=== PATIENT | female | born 2000 | race Caucasian/White ===

== ENCOUNTER 2021-03-12 12:06 | Day surgery (SDC) | payer OTHER ==
[2021-03-12 13:01] VITALS: BMI 31.1
[2021-03-12 13:50] LABS: Fetal Membranes Rupture No Membranes Rupture (No Rupture)
[2021-03-12] MEDS ORDERED: hydrALAZINE 20 MG/ML VIAL SLOW IVP PRN (14:08)
== END 2021-03-12 14:50 | disposition home health service (06) ==
LOC: CSHLD/OP 12:06
PROVIDERS: ATTEND Obstetrics & Gynecology
DX: O99.891 Other specified diseases and conditions complicating pregnancy (principal); O47.1 False labor at or after 37 completed weeks of gestation; N89.8 Other specified noninflammatory disorders of vagina; Z3A.38 38 weeks gestation of pregnancy; Z79.899 Other long term (current) drug therapy; Z91.040 Latex allergy status
CPT/HCPCS: 84112; 87480; 87510; 87660; 99284

== ENCOUNTER 2021-03-13 22:56 | Inpatient (IN) | payer OTHER ==
[~2021-03-13 22:56] MED LIST: Bupivacaine 0.25% HCL 30 ML VIAL ONE
[2021-03-13 23:28] VITALS: BMI 30.9
[2021-03-13] MEDS ORDERED: Lactated Ringer's 1,000 ML IV SCH (23:45)
[2021-03-13] MEDS ORDERED: Acetaminophen 500 MG TAB PO PRN (23:55)
[2021-03-13] MEDS ORDERED: Promethazine HCl 25 MG/ML VIAL IM PRN (23:55)
[2021-03-13] MEDS ORDERED: Misoprostol 200 MCG TAB PR PRN (23:55)
[2021-03-13] MEDS ORDERED: Ondansetron PF 4 MG/2 ML Vial IVP PRN (23:55)
[2021-03-13] MEDS ORDERED: HYDROcodone/Acetaminophen 5/325 mg Tablet PO PRN ×2 (23:55)
[2021-03-13] MEDS ORDERED: Diphenoxylate HCl/Atropine Tablet PO PRN ×2 (23:55)
[2021-03-13] MEDS ORDERED: hydrALAZINE 20 MG/ML VIAL SLOW IVP PRN (23:55)
[2021-03-13] MEDS ORDERED: Butorphanol Tartrate 1 MG/ML VIAL SLOW IVP PRN (23:55)
[2021-03-13] MEDS ORDERED: Carboprost 250 MCG/ML AMP IM PRN (23:55)
[2021-03-13] MEDS ORDERED: Docusate 100 MG CAP PO PRN (23:55)
[2021-03-13] MEDS ORDERED: Lidocaine 1% (PF) 30 ML VIAL SC PRN (23:55)
[2021-03-13] MEDS ORDERED: Ibuprofen 800 MG TAB PO PRN (23:55)
[2021-03-13] MEDS ORDERED: Methylergonovine 0.2 MG/ML VIAL IM PRN (23:55)
[2021-03-14 04:34] LABS: Hep B Surf Ag Non-Reactive S/CO (NonReactive); Syphilis Antibody Nonreactive (Nonreactive); Syphilis Antibody Index 0.03 S/CO (<1.00 Non-Reactive)
[2021-03-14 04:35] LABS: SARS-CoV-2 NAA Rapid Test Not Detected (NotDetected)
[2021-03-14] MEDS ORDERED: Fentanyl 2 mcg/Bup 0.1% Cadd 100 ML ONE (04:35)
[2021-03-14 04:37] LABS: Hemoglobin 9.4 g/dL (12.0-15.5); Mean Corpuscular HGB CONC 31.2 g/dL (32.0-36.0); Mean Corpuscular Hemoglobin 23.3 pg (27.0-33.0); Mean Corpuscular Volume 74.7 fl (81.6-98.3); Mean Platelet Volume 10.9 fl (7.4-10.4); Platelet Count 281 10x3/uL (150-450); RBC Distribution Width 17.7 % (11.5-14.5); Red Blood Cell (RBC) Count 4.03 10x6/uL (3.90-5.03); White Blood Cell (WBC) Count 12.4 10x3/uL (3.5-10.5)
[2021-03-14] MEDS ORDERED: Naloxone HCl 0.4 mg/ml Vial IVP PRN ×2 (06:54)
[2021-03-14] MEDS ORDERED: Ondansetron PF 4 MG/2 ML Vial IVP PRN ×2 (06:54→12:59)
[2021-03-14] MEDS ORDERED: Promethazine HCl 25 MG/ML VIAL IM PRN ×2 (06:54→12:59)
[2021-03-14] MEDS ORDERED: ePHEDrine Sulfate 50 MG/10 ML VIAL SLOW IVP PRN (06:54)
[2021-03-14] MEDS ORDERED: Lactated Ringer's 500 ML IV PRN (06:54)
[2021-03-14] MEDS ORDERED: diphenhydrAMINE 50 MG/ML VIAL IVP PRN (06:54)
[2021-03-14] MEDS ORDERED: Hydrocerin (Eucerin) Cream 120 gm Jar TOP PRN (06:54)
[2021-03-14] MEDS ORDERED: Acetaminophen 325 MG TAB PO PRN (06:54)
[2021-03-14] MEDS ORDERED: Fentanyl 2 mcg/Bupivacaine 0.1% Cassette 100 ML EPIDURAL SCH (07:00)
[2021-03-14] MEDS ORDERED: Communication Order-Pharmacy FS PRN (07:00)
[2021-03-14] MEDS: NS w/ Oxytocin 30 units 500 ML IV SCH ×2 (10:30→11:49)
[2021-03-14 11:11] LABS: HIV (1/2) Antibody/Antigen Non-Reactive (NonReactive); HIV 1/2 INDEX 0.09 S/CO (<1.00)
[2021-03-14] MEDS ORDERED: Benzocaine-Menthol 82.5 ML CAN TOP PRN (12:59)
[2021-03-14] MEDS ORDERED: Bisacodyl 10 MG SUPP PR PRN (12:59)
[2021-03-14] MEDS ORDERED: Measles/Mumps/Rubella 10 MCG/0.5 ML VIAL SC ONE (12:59)
[2021-03-14] MEDS ORDERED: diphenhydrAMINE 25 MG CAP PO PRN (12:59)
[2021-03-14] MEDS ORDERED: NS w/ Oxytocin 30 units 500 ML IV SCH (12:59)
[2021-03-14] MEDS ORDERED: Varicella virus, LIVE 0.5 ML VIAL SC ONE (12:59)
[2021-03-14] MEDS ORDERED: Misoprostol 200 MCG TAB VAG PRN (12:59)
[2021-03-14] MEDS ORDERED: Milk Of Magnesia 30 ML UDCUP PO PRN (12:59)
[2021-03-14] MEDS ORDERED: hydrALAZINE 20 MG/ML VIAL SLOW IVP PRN (12:59)
[2021-03-14] MEDS ORDERED: Zolpidem Tartrate 5 MG TAB PO PRN (12:59)
[2021-03-14] MEDS ORDERED: Lanolin Ointment 7 GM TUBE TOP PRN (12:59)
[2021-03-14] MEDS ORDERED: HYDROcodone/Acetaminophen 5/325 mg Tablet PO PRN (12:59)
[2021-03-14] MEDS ORDERED: Preparation H Ointment 28 GM TUBE PR PRN (12:59)
[2021-03-14] MEDS ORDERED: Methylergonovine 0.2 MG/ML VIAL IM PRN (12:59)
[2021-03-14] MEDS ORDERED: Boostrix 0.5 ML (Tdap) VIAL IM ONE (12:59)
[2021-03-14] MEDS: Ibuprofen 800 MG TAB PO SCH ×2 (14:37→21:25)
[2021-03-14] MEDS: Ferrous Sulfate 325 MG TAB PO SCH (18:19)
[2021-03-14] MEDS: Docusate Calcium (SURFAK) 240 MG CAP PO SCH (21:25)
[2021-03-15 04:29] LABS: Hemoglobin 8.5 g/dL (12.0-15.5); Mean Corpuscular Hemoglobin 23.5 pg (27.0-33.0); Mean Corpuscular Volume 78.4 fl (81.6-98.3); Mean Platelet Volume 10.2 fl (7.4-10.4); Platelet Count 219 10x3/uL (150-450); RBC Distribution Width 17.9 % (11.5-14.5); Red Blood Cell (RBC) Count 3.61 10x6/uL (3.90-5.03); White Blood Cell (WBC) Count 13.3 10x3/uL (3.5-10.5)
[2021-03-15] MEDS: Ibuprofen 800 MG TAB PO SCH ×3 (05:55→21:07)
[2021-03-15] MEDS: Prenatal Vitamin 1 TAB PO SCH (08:34)
[2021-03-15] MEDS: Docusate Calcium (SURFAK) 240 MG CAP PO SCH ×2 (08:34→21:07)
[2021-03-15] MEDS: Ferrous Sulfate 325 MG TAB PO SCH ×2 (08:34→16:41)
[2021-03-16] MEDS: Ibuprofen 800 MG TAB PO SCH (05:27)
[2021-03-16 07:56] VITALS: BP 113/63; TEMP 98.1
[2021-03-16] MEDS: Ferrous Sulfate 325 MG TAB PO SCH (08:11)
[2021-03-16] MEDS: Docusate Calcium (SURFAK) 240 MG CAP PO SCH (08:11)
[2021-03-16] MEDS: Prenatal Vitamin 1 TAB PO SCH (08:11)
== END 2021-03-16 13:05 | disposition home or self-care (01) | DRG 807 ==
LOC: CSHLD/OP 22:56 → CSHLD 23:56 → UNDOADMIN 03-14 04:36 → CSHLD 03-14 04:36 → CSHPP 03-14 12:40
PROVIDERS: ADMIT Obstetrics & Gynecology; ATTEND Obstetrics & Gynecology
PROC: 10E0XZZ Delivery of Products of Conception, External Approach (ICD-10-PCS; principal; 2021-03-14)
DX: O80 Encounter for full-term uncomplicated delivery (principal); Z37.0 Single live birth; Z3A.39 39 weeks gestation of pregnancy; Z20.822 Contact with and (suspected) exposure to COVID-19
CPT/HCPCS: 51702; 85027; 86780; 86850; 86900; 86901; 87340; 87389; 99285; J0595; J2590; S0020; U0002

== ENCOUNTER 2022-10-29 14:18 | Emergency (ER) | payer OTHER ==
[2022-10-29] MEDS ORDERED: Ondansetron PF 4 MG/2 ML Vial ONE ×2 (14:54→16:30)
[2022-10-29 14:58] LABS: #Eosinphils 0.3 10x3/uL (0.0-0.5); #Monocytes 0.6 10x3/uL (0.0-1.1); #Neutrophils 6.3 10x3/uL (1.5-8.4); %Basophils 0.2 % (0.0-2.0); %Eosinophils 3.7 % (0.0-6.0); %Lymphocytes 9.4 % (18.0-47.0); %Monocytes 7.5 % (0.0-10.0); %Neutrophils 78.8 % (40.0-75.0); Hemoglobin 14.2 g/dL (12.0-15.5); Mean Corpuscular HGB CONC 33.8 g/dL (32.0-36.0); Mean Corpuscular Hemoglobin 28.4 pg (27.0-33.0); Mean Platelet Volume 10.3 fl (7.4-10.4); Platelet Count 233 10x3/uL (150-450); RBC Distribution Width 12.6 % (11.5-14.5)
[2022-10-29 15:10] LABS: BHCG - Serum Negative (NEGATIVE); Pregs Control Background? CLEAR/WHITE (CLR/WHITE); Pregs Control Bar Appear? YES (CONTROL BAR)
[2022-10-29 15:16] LABS: ALT (SGPT) 14 U/L (8-55); AST (SGOT) 21 U/L (5-34); Albumin 4.6 g/dL (3.5-5.0); Alkaline Phosphatase 98 U/L (40-110); Anion Gap 14 mmol/L (10-20); BUN (Urea Nitrogen) 8 mg/dL (7.0-18.7); Bilirubin, Total 0.5 mg/dL (0.2-1.2); Calc. Creatinine Clearance 0 mL/min (70-130); Calcium 9.6 mg/dL (7.8-10.44); Carbon Dioxide 24 mmol/L (22-29); Chloride 102 mmol/L (98-107); Estimated GFR 125; Globulin 3.3 g/dL (2.4-3.5); Glucose 101 mg/dL (70-105); Lipase 11 U/L (8-78); Potassium 3.1 mmol/L (3.5-5.1); Protein, Total 7.9 g/dL (6.0-8.3); Sodium 137 mmol/L (136-145)
[2022-10-29 15:26] LABS: Bilirubin Neg (Negative); Blood, Urine 10 (Negative); Clarity Clear (Clear); Glucose, Urine (Dipstick) Normal (Negative); Ketone, Urine 50 mg/dL (Negative); Leukocyte Negative (Negative); Nitrite Negative (Negative); Protein, Urine (Dipstick) Negative (Neg-Trace); Specific Gravity, Urine 1.015 (1.005-1.030); Urobilinogen Normal mg/dL (Less than 2)
[2022-10-29] MEDS ORDERED: Potassium Chloride 20 MEQ TAB ONE (15:27)
[2022-10-29] MEDS ORDERED: Famotidine/PF 20 mg/2ml Vial ONE (15:28)
[2022-10-29 15:42] LABS: Bacteria/HPF Rare-Few HPF (None Seen); CAUTI Indications for Culture Pelvic or flank pain; RBC/HPF 0-3 HPF (0-3); Squamous Epithelial 0-3 HPF (0-3); WBC/HPF 0-3 HPF (0-3)
[2022-10-29 15:43] LABS: Mucous/LPF 1+ LPF (<2+); Urine Culture Reflex No No
[2022-10-29 16:28] LABS: Troponin I Less than 0.010 ng/mL (< 0.028)
== END 2022-10-29 16:53 | disposition home or self-care (01) ==
LOC: CSHERS 14:18
DX: R10.9 Unspecified abdominal pain (principal); R11.2 Nausea with vomiting, unspecified
CPT/HCPCS: 36415; 71045; 80053; 81001; 83690; 84484; 84703; 85025; 93005; 96374; 96375; 96376; J2405; S0028